=== PATIENT | female | born 1965 | race Caucasian/White ===

== ENCOUNTER 2024-08-22 16:28 | Emergency (ER) | payer BC ==
[2024-08-22] MEDS ORDERED: Simethicone Chewable 80 MG TAB PO SCH (17:30)
[2024-08-23 02:09] LABS: Campy jejuni + coli by PCR Negative (Negative); STEC Shiga Toxin 1+2 Negative (Negative); Salmonella spp. by PCR Negative (Negative); Shigella spp + EIEC by PCR Negative (Negative)
== END 2024-08-22 17:54 | disposition home or self-care (01) ==
LOC: NAV ERS 16:28
DX: R14.0 Abdominal distension (gaseous) (principal); R19.5 Other fecal abnormalities; E78.5 Hyperlipidemia, unspecified; Z79.82 Long term (current) use of aspirin; Z79.899 Other long term (current) drug therapy; Z87.891 Personal history of nicotine dependence
CPT/HCPCS: 87324; 87449; 87505; 87507; 99283

== ENCOUNTER 2024-11-12 18:18 | Emergency (ER) | payer BC | END 2024-11-12 19:50 | disposition home or self-care (01) | LOC: EEVIPCON 18:18 → NAV ERS 18:18 | DX: S22.41XA Multiple fractures of ribs, right side, initial encounter for closed fracture (principal); F90.9 Attention-deficit hyperactivity disorder, unspecified type; F17.210 Nicotine dependence, cigarettes, uncomplicated; E78.5 Hyperlipidemia, unspecified; Z79.899 Other long term (current) drug therapy; W19.XXXA Unspecified fall, initial encounter; Z79.82 Long term (current) use of aspirin | CPT/HCPCS: 71250 ==

== ENCOUNTER 2025-05-21 15:50 | Emergency (ER) | payer BC ==
[~2025-05-21 15:50] MED LIST: Iopamidol 370 76% 100 ML VIAL ONE
[2025-05-21] MEDS ORDERED: Ondansetron PF 4 MG/2 ML Vial ONE (16:38)
[2025-05-21 17:11] LABS: ALT (SGPT) 24 U/L (Less than 34); AST (SGOT) 26 U/L (11-34); Albumin 4.1 g/dL (3.1-4.5); Alkaline Phosphatase 70 U/L (40-110); Anion Gap 15 mmol/L (10-20); BUN (Urea Nitrogen) 24 mg/dL (9.8-20.1); Bilirubin, Total 0.6 mg/dL (0.3-1.2); Calc. Creatinine Clearance 0 mL/min (70-130); Calcium 9.5 mg/dL (7.8-10.44); Carbon Dioxide 21 mmol/L (22-29); Chloride 105 mmol/L (98-107); Globulin 3.3 g/dL (2.4-3.5); Glucose 99 mg/dL (70-105); Potassium 3.8 mmol/L (3.5-5.1); Sodium 137 mmol/L (136-145)
[2025-05-21 17:12] LABS: Hematocrit 40.9 % (36.0-47.0); Hemoglobin 14.1 g/dL (12.0-16.0); Mean Corpuscular Hemoglobin 30.4 pg (27.0-31.0); Mean Corpuscular Volume 87.9 fl (78.0-98.0); Platelet Count 250 10x3/uL (130-400); Red Blood Cell (RBC) Count 4.65 mill/uL (4.20-5.40); White Blood Cell (WBC) Count 11.6 10x3/uL (4.8-10.8)
[2025-05-21 17:46] LABS: MDiff Complete? YES
[2025-05-21 18:58] LABS: Glucose, Urine (Dipstick) Negative (Negative); Leukocyte Trace (Negative); Protein, Urine (Dipstick) Negative (Neg-Trace); Specific Gravity, Urine Less/Equal 1.005 (1.005-1.030)
[2025-05-21 19:17] LABS: Bacteria/HPF Rare-Few HPF (None Seen); CAUTI Indications for Culture Pelvic or flank pain; RBC/HPF 0-3 HPF (0-3); WBC/HPF 0-3 HPF (0-3)
[2025-05-21 19:18] LABS: Urine Culture Reflex No No
== END 2025-05-21 21:05 | disposition short-term general hospital (02) ==
LOC: NAV ERS 15:50
DX: K57.32 Diverticulitis of large intestine without perforation or abscess without bleeding (principal); E78.5 Hyperlipidemia, unspecified; F17.210 Nicotine dependence, cigarettes, uncomplicated; Z79.899 Other long term (current) drug therapy; Z79.82 Long term (current) use of aspirin
CPT/HCPCS: 74177; 80053; 81001; 85025; 96374; 96375; 96376; J2405; J2543; J3010; J7030; J7050; Q9967